=== PATIENT | male | born 1945 | race Caucasian/White ===

== ENCOUNTER 2016-05-11 12:10 | Emergency (ER) | payer OTHER, MEDICARE ==
[~2016-05-11] VITALS: Ht 185.4 cm; Wt 122.0 kg
[~2016-05-11 12:10] MED LIST: ASPIRIN EC325 MG PO; ATORVASTATIN CA80 MG PO; CALCIPOTRIENE60 GM TP; CALCIPOTRIENE60 ML TP; CLOPIDOGREL75 MG PO; DULOXETINE HCL60 MG PO; KEFLEX500 MG PO; LISINOPRIL20 MG PO; LOPRESSOR25 MG PO; MECLIZINE HCL25 MG PO; METFORMIN HCL1000 MG PO; NAPROXEN500 MG PO; OXYCODONE HCL5 MG PO; PRAVASTATIN SOD40 MG PO; VENTOLIN HFA18 GM IH; ZOFRAN ODT4 MG PO
[2016-05-11 13:01] LABS: EOSINOPHIL (%) 0.2 % (0-5); HEMATOCRIT 41.6 % (38.0-50.0); IMMATURE GRANULOCYTE (%) 0.2 % (0.0-0.7); IMMATURE GRANULOCYTE COUNT 0.4 K/uL; LYMPHOCYTE COUNT 3.7 K/uL (1.0-2.8); MCH 31.2 PG (29.0-34.0); MCHC 32.9 G/DL (30.0-36.0); MCV 94.8 FL (86-99); MEAN PLAT.VOLUME 10.6 uM^3 (9.0-12.4); MONOCYTE (%) 5.4 % (3-12); MONOCYTE COUNT 0.9 K/uL (0-0.8); NEUTROPHIL (%) 72.5 % (45-76); NEUTROPHIL COUNT 12.5 K/uL (1.8-6.4); PLATELET COUNT 201 K/uL (156-360); RBC DIS.WIDTH-SD 46.2 % (39-53); RED BLOOD COUNT 4.39 M/uL (4.00-5.50); WHITE BLOOD COUNT 17.2 K/uL (4.1-10.2)
[2016-05-11 13:12] LABS: CHLORIDE 104 mEq/L (99-109); POTASSIUM 4.2 mEq/L (3.7-5.4); SODIUM 143 mEq/L (136-147)
[2016-05-11 13:13] LABS: GLUCOSE 140 mg/dL (70-99)
[2016-05-11 13:15] LABS: ANION GAP 9 MEQ/L (2-14)
[2016-05-11 13:17] LABS: GFR ESTIMATE (CALCULATED) > 59 mL/min/
[2016-05-11 13:18] LABS: UREA NITROGEN (BUN) 24 mg/dL (9-23)
[2016-05-11 15:49] VITALS: BP 145/66
== END 2016-05-11 15:51 | disposition home or self-care (01) ==
LOC: EME 12:10
PROVIDERS: Emergency Medicine
DX: J40 Bronchitis, not specified as acute or chronic (principal); E11.9 Type 2 diabetes mellitus without complications; E78.5 Hyperlipidemia, unspecified; I10 Essential (primary) hypertension; I25.2 Old myocardial infarction; Z95.1 Presence of aortocoronary bypass graft; Z87.891 Personal history of nicotine dependence
CPT/HCPCS: 71020; 80048; 85025; 94640; 99281; 99284

== ENCOUNTER 2017-09-08 14:15 | Inpatient (IN) | payer OTHER, MEDICARE ==
[~2017-09-08] VITALS: Ht 185.4 cm; Wt 122.0 kg
[~2017-09-08 14:15] MED LIST changes: +ANORO ELLIPTA1 EACH IH; -METFORMIN HCL1000 MG PO; +METFORMIN HCL500 MG PO; -VENTOLIN HFA18 GM IH
[2017-09-08 15:44] LABS: HEMOGLOBIN 13.7 G/DL (12.5-16.6); MCH 30.2 PG (29.0-34.0); MCHC 32.6 G/DL (30.0-36.0); MCV 92.7 FL (86-99); PLATELET COUNT 235 K/uL (156-360); RBC DIS.WIDTH-CV 14.5 % (11.8-14.6); RBC DIS.WIDTH-SD 49.4 % (39-53); RED BLOOD COUNT 4.53 M/uL (4.00-5.50); WHITE BLOOD COUNT 9.2 K/uL (4.1-10.2)
[2017-09-08 15:55] LABS: CHLORIDE 105 mEq/L (99-109); POTASSIUM 4.6 mEq/L (3.7-5.4); SODIUM 141 mEq/L (136-147)
[2017-09-08 15:57] LABS: GLUCOSE 90 mg/dL (70-99); TOTAL PROTEIN 7.7 g/dL (6.4-8.3)
[2017-09-08 15:59] LABS: TOTAL BILIRUBIN 0.9 mg/dL (0.0-1.0)
[2017-09-08 16:00] LABS: ALKALINE PHOSPHATASE 110 IU/L (3-129)
[2017-09-08 16:01] LABS: GFR ESTIMATE (CALCULATED) > 59 mL/min/ (58.99-99999)
[2017-09-08 16:02] LABS: AST (GOT) 44 IU/L (2-34); UREA NITROGEN (BUN) 12 mg/dL (9-23)
[2017-09-08 16:04] LABS: ALT (GPT) 43 IU/L (3-49)
[2017-09-08] MEDS ORDERED: LO-DOSE ASPIRIN81 M1 PO (17:21)
[2017-09-08] MEDS ORDERED: CYMBALTA30 MG PO (17:22)
[2017-09-08] MEDS ORDERED: LIPITOR80 MG PO (17:24)
[2017-09-08] MEDS ORDERED: LOPRESSOR25 MG PO (17:25)
[2017-09-08] MEDS ORDERED: AMARYL1 MG PO (17:26)
[2017-09-08] MEDS ORDERED: KLONOPIN1 MG PO (17:26)
[2017-09-08] MEDS ORDERED: NORVASC5 MG PO (17:27)
[2017-09-08] MEDS ORDERED: TYLENOL REGULA325 MG PO (17:28)
[2017-09-08] MEDS ORDERED: MEN'S MULTI-VI1 EACH PO (17:28)
[2017-09-08 20:35] VITALS: BP 157/70
[2017-09-08 23:37] VITALS: BP 128/68
[2017-09-09 03:12] VITALS: BP 160/81
[2017-09-09 07:20] LABS: HEMATOCRIT 41.3 % (38.0-50.0); HEMOGLOBIN 13.4 G/DL (12.5-16.6); MCH 29.9 PG (29.0-34.0); MCHC 32.4 G/DL (30.0-36.0); MCV 92.2 FL (86-99); PLATELET COUNT 198 K/uL (156-360); RBC DIS.WIDTH-CV 14.6 % (11.8-14.6); RBC DIS.WIDTH-SD 49.3 % (39-53); RED BLOOD COUNT 4.48 M/uL (4.00-5.50); WHITE BLOOD COUNT 8.7 K/uL (4.1-10.2)
[2017-09-09 07:39] LABS: CHLORIDE 104 MEQ/L (99-109); CREATININE 0.8 MG/DL (0.6-1.3); GFR ESTIMATE (CALCULATED) > 59 mL/min/ (58.99-99999); GLUCOSE 99 mg/dL (70-99); POTASSIUM 4.5 MEQ/L (3.7-5.4); SODIUM 141 MEQ/L (136-147); UREA NITROGEN (BUN) 13 mg/dL (9-23)
[2017-09-09 09:26] VITALS: BP 138/76
[2017-09-09 11:48] VITALS: BP 127/63
[2017-09-09 18:21] VITALS: BP 114/58
[2017-09-09 19:25] VITALS: BP 122/59
[2017-09-09 23:17] VITALS: BP 130/60
[2017-09-10 03:00] VITALS: BP 145/65
[2017-09-10 08:18] VITALS: BP 134/64
[2017-09-10 12:27] VITALS: BP 123/58
[2017-09-10 15:22] VITALS: BP 130/61
[2017-09-10 19:46] VITALS: BP 145/66
[2017-09-11 00:29] VITALS: BP 113/56
[2017-09-11 04:00] VITALS: BP 162/75
[2017-09-11 08:05] VITALS: BP 159/77
[2017-09-11] MEDS ORDERED: BACTRIM,SEPT1 TABLET PO (09:59)
== END 2017-09-11 13:01 | disposition home or self-care (01) | DRG 561 ==
LOC: EME 14:15 → EXP 14:15 → EDOF 17:21 → ENRESERV 17:39 → 3EAST 20:19
PROVIDERS: Family Medicine; Nurse Practitioner Family
DX: T84.196A Other mechanical complication of internal fixation device of bone of right lower leg, initial encounter (principal); Y83.1 Surgical operation with implant of artificial internal device as the cause of abnormal reaction of the patient, or of later complication, without mention of misadventure at the time of the procedure; I25.10 Atherosclerotic heart disease of native coronary artery without angina pectoris; E78.5 Hyperlipidemia, unspecified; I10 Essential (primary) hypertension; E11.40 Type 2 diabetes mellitus with diabetic neuropathy, unspecified; E03.9 Hypothyroidism, unspecified; N40.0 Benign prostatic hyperplasia without lower urinary tract symptoms; M19.90 Unspecified osteoarthritis, unspecified site; F32.9 Major depressive disorder, single episode, unspecified; F41.9 Anxiety disorder, unspecified; I25.2 Old myocardial infarction; Z87.891 Personal history of nicotine dependence; Z95.1 Presence of aortocoronary bypass graft; Z95.5 Presence of coronary angioplasty implant and graft; Z79.82 Long term (current) use of aspirin; Z79.84 Long term (current) use of oral hypoglycemic drugs
CPT/HCPCS: 73610; 80048; 80053; 80202; 82565; 82948; 83605; 85027; 87040; 87070; 87075; 87205; 99281; 99284; J3370

== ENCOUNTER 2017-10-19 12:45 | Inpatient (IN) | payer OTHER, MEDICARE ==
[~2017-10-19] VITALS: Ht 185.4 cm; Wt 114.5 kg
[~2017-10-19 12:45] MED LIST changes: +AMARYL1 MG PO; +BACTRIM,SEPT1 TABLET PO; +CYMBALTA30 MG PO; +KLONOPIN1 MG PO; +LIPITOR80 MG PO; +LO-DOSE ASPIRIN81 M1 PO; +MEN'S MULTI-VI1 EACH PO; +NORVASC10 MG PO; +TYLENOL REGULA325 MG PO
[2017-10-19 13:59] LABS: BASOPHIL (%) 0.3 % (0-1); EOSINOPHIL (%) 1.7 % (0-5); EOSINOPHIL COUNT 0.2 K/uL (0-0.3); HEMATOCRIT 44.7 % (38.0-50.0); HEMOGLOBIN 14.5 G/DL (12.5-16.6); IMMATURE GRANULOCYTE (%) 0.3 % (0.0-0.7); LYMPHOCYTE (%) 16.8 % (15-42); LYMPHOCYTE COUNT 1.9 K/uL (1.0-2.8); MCHC 32.4 G/DL (30.0-36.0); MCV 92.5 FL (86-99); MONOCYTE COUNT 0.6 K/uL (0-0.8); NEUTROPHIL (%) 75.9 % (45-76); NEUTROPHIL COUNT 8.7 K/uL (1.8-6.4); PLATELET COUNT 224 K/uL (156-360); RBC DIS.WIDTH-CV 14.7 % (11.8-14.6); RBC DIS.WIDTH-SD 50.4 % (39-53); RED BLOOD COUNT 4.83 M/uL (4.00-5.50); WHITE BLOOD COUNT 11.5 K/uL (4.1-10.2)
[2017-10-19 14:08] LABS: INTER. NORMALIZED RATIO 1.2
[2017-10-19 14:10] LABS: PTT 27.3 SEC (25-37)
[2017-10-19 14:12] LABS: ALBUMIN 3.7 g/dL (3.2-4.8); CHLORIDE 103 mEq/L (99-109); POTASSIUM 5.1 mEq/L (3.7-5.4); SODIUM 142 mEq/L (136-147)
[2017-10-19 14:13] LABS: MAGNESIUM 1.7 mg/dL (1.3-2.7)
[2017-10-19 14:14] LABS: GLUCOSE 178 mg/dL (70-99)
[2017-10-19 14:16] LABS: TOTAL BILIRUBIN 1.1 mg/dL (0.0-1.0)
[2017-10-19 14:18] LABS: ALKALINE PHOSPHATASE 103 IU/L (3-129); CREATININE 1.4 mg/dL (0.6-1.3); GFR ESTIMATE (CALCULATED) 53 mL/min/ (58.99-99999)
[2017-10-19 14:19] LABS: UREA NITROGEN (BUN) 19 mg/dL (9-23)
[2017-10-19 14:20] LABS: AST (GOT) 55 IU/L (2-34)
[2017-10-19 14:21] LABS: ALT (GPT) 55 IU/L (3-49)
[2017-10-19 14:24] LABS: TROP-I INTERPRETATION NEGATIVE; TROPONIN-I 0.04 ng/mL (0.0-0.30)
[2017-10-19] MEDS ORDERED: AMOX TR-K CLV1 EAC3 PO (16:33)
[2017-10-19] MEDS ORDERED: CLONAZEPAM1 MG PO (16:34)
[2017-10-19] MEDS ORDERED: METOPROLOL TART25 MG PO (16:36)
[2017-10-19] MEDS ORDERED: ATORVASTATIN CA80 MG PO (16:36)
[2017-10-19] MEDS ORDERED: DULOXETINE HCL30 MG PO (16:39)
[2017-10-19] MEDS ORDERED: GLIMEPIRIDE1 MG PO (16:40)
[2017-10-19 17:36] LABS: TROP-I INTERPRETATION NEGATIVE; TROPONIN-I 0.04 ng/mL (0.0-0.30)
[2017-10-19 17:49] VITALS: BP 134/74
[2017-10-19 18:58] VITALS: BP 126/58
[2017-10-19 21:18] VITALS: BP 146/88
[2017-10-19 23:54] VITALS: BP 105/50
[2017-10-20 04:58] VITALS: BP 102/55
[2017-10-20 05:26] LABS: HEMOGLOBIN 13.9 G/DL (12.5-16.6); MCH 29.8 PG (29.0-34.0); MCHC 32.3 G/DL (30.0-36.0); MCV 92.1 FL (86-99); PLATELET COUNT 217 K/uL (156-360); RBC DIS.WIDTH-SD 50.1 % (39-53); RED BLOOD COUNT 4.67 M/uL (4.00-5.50); WHITE BLOOD COUNT 14.7 K/uL (4.1-10.2)
[2017-10-20 05:40] LABS: TROP-I INTERPRETATION NEGATIVE; TROPONIN-I 0.06 ng/mL (0.0-0.30)
[2017-10-20 05:45] LABS: CHLORIDE 99 MEQ/L (99-109); CREATININE 1.4 MG/DL (0.6-1.3); GFR ESTIMATE (CALCULATED) 53 mL/min/ (58.99-99999); SODIUM 138 MEQ/L (136-147); UREA NITROGEN (BUN) 27 mg/dL (9-23)
[2017-10-20 05:48] LABS: GLUCOSE 89 mg/dL (70-99); POTASSIUM 3.8 MEQ/L (3.7-5.4)
[2017-10-20 08:14] VITALS: BP 112/60
[2017-10-20] MEDS ORDERED: LOPRESSOR50 MG PO (12:17)
[2017-10-20] MEDS ORDERED: ASPIR-LOW81 MG PO (12:17)
[2017-10-20] MEDS ORDERED: AMLODIPINE BES2.5 MG PO (12:17)
[2017-10-20 15:31] LABS: TROP-I INTERPRETATION NEGATIVE; TROPONIN-I 0.05 ng/mL (0.0-0.30)
== END 2017-10-20 17:06 | disposition home or self-care (01) | DRG 309 ==
LOC: EME 12:45 → EDOF 14:30 → 4EAST 14:30 → CANRESERV 14:55 → ENRESERV 14:55 → 4EAST 17:12 → ENPENDDIS 10-20 → 4EAST 10-20 17:06
PROVIDERS: Emergency Medicine; Family Medicine
DX: I48.92 Unspecified atrial flutter (principal); I25.10 Atherosclerotic heart disease of native coronary artery without angina pectoris; R42 Dizziness and giddiness; I95.9 Hypotension, unspecified; N41.0 Acute prostatitis; E11.9 Type 2 diabetes mellitus without complications; I10 Essential (primary) hypertension; J44.9 Chronic obstructive pulmonary disease, unspecified; R09.02 Hypoxemia; E78.5 Hyperlipidemia, unspecified; E66.9 Obesity, unspecified; Z68.33 Body mass index [BMI] 33.0-33.9, adult; M19.90 Unspecified osteoarthritis, unspecified site; F32.9 Major depressive disorder, single episode, unspecified; F41.9 Anxiety disorder, unspecified; I25.2 Old myocardial infarction; Z95.1 Presence of aortocoronary bypass graft; Z95.5 Presence of coronary angioplasty implant and graft; Z79.2 Long term (current) use of antibiotics; Z79.84 Long term (current) use of oral hypoglycemic drugs; Z79.82 Long term (current) use of aspirin; Z87.891 Personal history of nicotine dependence
CPT/HCPCS: 71045; 80048; 80053; 83605; 83735; 84484; 85025; 85027; 85610; 85730; 93005; 99281; 99285

== ENCOUNTER 2017-11-08 12:24 | Emergency (ER) | payer OTHER, MEDICARE ==
[~2017-11-08] VITALS: Ht 185.4 cm; Wt 119.8 kg
[~2017-11-08 12:24] MED LIST changes: +AMLODIPINE BES2.5 MG PO; +AMOX TR-K CLV1 EAC3 PO; +ASPIR-LOW81 MG PO; +CLONAZEPAM1 MG PO; +DULOXETINE HCL30 MG PO; +GLIMEPIRIDE1 MG PO; +LOPRESSOR50 MG PO; +METOPROLOL TART25 MG PO
[2017-11-08 12:50] LABS: HEMATOCRIT 41.9 % (38.0-50.0); HEMOGLOBIN 13.6 G/DL (12.5-16.6); MCH 29.9 PG (29.0-34.0); MCHC 32.5 G/DL (30.0-36.0); MCV 92.1 FL (86-99); PLATELET COUNT 268 K/uL (156-360); RBC DIS.WIDTH-CV 15.1 % (11.8-14.6); RBC DIS.WIDTH-SD 51.3 % (39-53); RED BLOOD COUNT 4.55 M/uL (4.00-5.50); WHITE BLOOD COUNT 13.4 K/uL (4.1-10.2)
[2017-11-08 12:56] LABS: INTER. NORMALIZED RATIO 1.6
[2017-11-08 12:58] LABS: PTT 34.3 SEC (25-37)
[2017-11-08 13:10] LABS: TROP-I INTERPRETATION NEGATIVE; TROPONIN-I 0.04 ng/mL (0.0-0.30)
[2017-11-08 13:11] LABS: CHLORIDE 104 MEQ/L (99-109); SODIUM 141 MEQ/L (136-147)
[2017-11-08 13:16] LABS: GFR ESTIMATE (CALCULATED) > 59 mL/min/ (58.99-99999); GLUCOSE 95 mg/dL (70-99); UREA NITROGEN (BUN) 24 mg/dL (9-23)
[2017-11-08] MEDS ORDERED: CARDIZEM CD180 MG PO (14:43)
[2017-11-08 15:12] LABS: APPEARANCE CLEAR ((CLEAR)); BILIRUBIN NEGATIVE; BLOOD NEGATIVE; COLOR YELLOW ((YELLOW)); GLUCOSE (STRIP) NEGATIVE; KETONES NEGATIVE; LEUKOCYTES NEGATIVE; NITRITE NEGATIVE; PROTEIN (STRIP) 30; SPECIFIC GRAVITY 1.025 (1.000-1.030); UCUL ADDED? NO
[2017-11-08 15:20] VITALS: BP 113/87
== END 2017-11-08 15:20 | disposition home or self-care (01) ==
LOC: EME 12:24
PROVIDERS: Emergency Medicine
DX: I48.91 Unspecified atrial fibrillation (principal); I45.4 Nonspecific intraventricular block; R94.31 Abnormal electrocardiogram [ECG] [EKG]; I51.7 Cardiomegaly; J90 Pleural effusion, not elsewhere classified; J98.11 Atelectasis; I10 Essential (primary) hypertension; E11.9 Type 2 diabetes mellitus without complications; J44.9 Chronic obstructive pulmonary disease, unspecified; I25.2 Old myocardial infarction; F32.9 Major depressive disorder, single episode, unspecified; F41.9 Anxiety disorder, unspecified; Z79.84 Long term (current) use of oral hypoglycemic drugs; Z87.891 Personal history of nicotine dependence; Z95.1 Presence of aortocoronary bypass graft; Z95.9 Presence of cardiac and vascular implant and graft, unspecified; Z87.448 Personal history of other diseases of urinary system; Z87.442 Personal history of urinary calculi; Z98.890 Other specified postprocedural states; Z85.9 Personal history of malignant neoplasm, unspecified
CPT/HCPCS: 71045; 80048; 81003; 84484; 85027; 85610; 85730; 93005; 99281; 99285

== ENCOUNTER 2017-11-23 11:08 | Emergency (ER) | payer OTHER, MEDICARE ==
[~2017-11-23] VITALS: Ht 185.4 cm; Wt 120.0 kg
[~2017-11-23 11:08] MED LIST changes: +CARDIZEM CD180 MG PO
[2017-11-23 12:50] VITALS: BP 111/71
[2017-11-23] MEDS ORDERED: METOPROLOL SUCC50 MG PO (12:53)
[2017-11-23] MEDS ORDERED: ELIQUIS5 MG PO (12:53)
[2017-11-23] MEDS ORDERED: DULOXETINE HCL30 MG PO (12:55)
== END 2017-11-23 13:02 | disposition home or self-care (01) ==
LOC: EME 11:08
DX: F41.9 Anxiety disorder, unspecified (principal); E11.9 Type 2 diabetes mellitus without complications; Z79.84 Long term (current) use of oral hypoglycemic drugs; I10 Essential (primary) hypertension; J43.9 Emphysema, unspecified; I25.2 Old myocardial infarction; F32.9 Major depressive disorder, single episode, unspecified; Z87.442 Personal history of urinary calculi; Z95.1 Presence of aortocoronary bypass graft; Z87.891 Personal history of nicotine dependence
CPT/HCPCS: 82948; 99281; 99283

== ENCOUNTER 2017-11-29 11:34 | Observation (INO) | payer OTHER, MEDICARE ==
[~2017-11-29] VITALS: Ht 185.4 cm; Wt 124.0 kg
[~2017-11-29 11:34] MED LIST changes: +ELIQUIS5 MG PO; +METOPROLOL SUCC50 MG PO
[2017-11-29 12:16] LABS: HEMATOCRIT 41.3 % (38.0-50.0); HEMOGLOBIN 13.1 G/DL (12.5-16.6); MCH 29.4 PG (29.0-34.0); MCHC 31.7 G/DL (30.0-36.0); MCV 92.8 FL (86-99); PLATELET COUNT 211 K/uL (156-360); RBC DIS.WIDTH-CV 14.7 % (11.8-14.6); RBC DIS.WIDTH-SD 50.1 % (39-53); RED BLOOD COUNT 4.45 M/uL (4.00-5.50); WHITE BLOOD COUNT 9.1 K/uL (4.1-10.2)
[2017-11-29 12:30] LABS: CHLORIDE 103 mEq/L (99-109); POTASSIUM 4.2 mEq/L (3.7-5.4); SODIUM 141 mEq/L (136-147)
[2017-11-29 12:32] LABS: GLUCOSE 131 mg/dL (70-99)
[2017-11-29 12:36] LABS: CREATININE 0.9 mg/dL (0.6-1.3); GFR ESTIMATE (CALCULATED) > 59 mL/min/ (58.99-99999)
[2017-11-29 12:37] LABS: UREA NITROGEN (BUN) 14 mg/dL (9-23)
[2017-11-29 16:41] LABS: TROP-I INTERPRETATION NEGATIVE; TROPONIN-I 0.02 ng/mL (0.0-0.30)
[2017-11-29] MEDS ORDERED: DULOXETINE HCL60 MG PO (16:56)
[2017-11-29] MEDS ORDERED: LO-DOSE ASPIRIN81 M2 PO (17:10)
[2017-11-29] MEDS ORDERED: BRINTELLIX10 MG PO (17:12)
[2017-11-29] MEDS ORDERED: ASMANEX HFA13 GM IH (17:13)
[2017-11-29] MEDS ORDERED: SPIRIVA18 MCG IH (17:15)
[2017-11-29 17:57] VITALS: BP 150/78
[2017-11-29 19:01] LABS: HEMATOCRIT 42.5 % (38.0-50.0); HEMOGLOBIN 13.3 G/DL (12.5-16.6); MCV 93.2 FL (86-99)
[2017-11-29 20:21] VITALS: BP 131/86
[2017-11-30 00:47] VITALS: BP 139/84
[2017-11-30 04:46] VITALS: BP 142/80
[2017-11-30 05:59] LABS: BASOPHIL (%) 0.3 % (0-1); EOSINOPHIL (%) 2.9 % (0-5); EOSINOPHIL COUNT 0.3 K/uL (0-0.3); HEMATOCRIT 40.4 % (38.0-50.0); HEMOGLOBIN 12.7 G/DL (12.5-16.6); IMMATURE GRANULOCYTE (%) 0.2 % (0.0-0.7); LYMPHOCYTE (%) 25.4 % (15-42); LYMPHOCYTE COUNT 2.4 K/uL (1.0-2.8); MCH 29.1 PG (29.0-34.0); MCHC 31.4 G/DL (30.0-36.0); MCV 92.7 FL (86-99); MONOCYTE (%) 6.5 % (3-12); MONOCYTE COUNT 0.6 K/uL (0-0.8); NEUTROPHIL (%) 64.7 % (45-76); PLATELET COUNT 193 K/uL (156-360); RBC DIS.WIDTH-CV 14.7 % (11.8-14.6); RBC DIS.WIDTH-SD 50.3 % (39-53); RED BLOOD COUNT 4.36 M/uL (4.00-5.50); WHITE BLOOD COUNT 9.2 K/uL (4.1-10.2)
[2017-11-30 06:16] LABS: ALBUMIN 3.6 G/DL (3.2-4.8); ALKALINE PHOSPHATASE 101 IU/L (3-129); ALT (GPT) 29 IU/L (3-49); AST (GOT) 28 IU/L (2-34); CHLORIDE 99 MEQ/L (99-109); CREATININE 0.9 MG/DL (0.6-1.3); GFR ESTIMATE (CALCULATED) > 59 mL/min/ (58.99-99999); GLUCOSE 114 mg/dL (70-99); POTASSIUM 4.5 MEQ/L (3.7-5.4); SODIUM 140 MEQ/L (136-147); TOTAL BILIRUBIN 1.1 MG/DL (0.0-1.0); TOTAL PROTEIN 6.1 G/DL (6.4-8.3); UREA NITROGEN (BUN) 13 mg/dL (9-23)
[2017-11-30 08:19] VITALS: BP 156/90
[2017-11-30 12:26] LABS: HEMOGLOBIN A1c (GLYCOHEMOGLOB) 6.5 % (Below 5.7)
[2017-11-30] MEDS ORDERED: CARDIZEM CD,CA240 MG PO (13:59)
[2017-11-30 15:51] LABS: STOOL OCCULT BLD 1ST SPECIMEN NEGATIVE
== END 2017-11-30 15:01 | disposition home or self-care (01) ==
LOC: EME 11:34 → EDOF 16:24 → 4SOUTH 16:24 → ENRESERV 16:28 → 4SOUTH 17:34
PROVIDERS: Hospitalist; Physician Assistant
DX: K62.5 Hemorrhage of anus and rectum (principal); I48.0 Paroxysmal atrial fibrillation; Z79.01 Long term (current) use of anticoagulants; Z79.82 Long term (current) use of aspirin; K59.00 Constipation, unspecified; R93.8 Abnormal findings on diagnostic imaging of other specified body structures; F41.9 Anxiety disorder, unspecified; F32.9 Major depressive disorder, single episode, unspecified; Z87.891 Personal history of nicotine dependence; I25.10 Atherosclerotic heart disease of native coronary artery without angina pectoris; E78.5 Hyperlipidemia, unspecified; I10 Essential (primary) hypertension; E11.9 Type 2 diabetes mellitus without complications; Z95.1 Presence of aortocoronary bypass graft; Z95.5 Presence of coronary angioplasty implant and graft; Z79.84 Long term (current) use of oral hypoglycemic drugs; Z88.2 Allergy status to sulfonamides
CPT/HCPCS: 74177; 80048; 80053; 82272; 82948; 83036; 84484; 85014; 85018; 85025; 85027; 86850; 86900; 86901; 93005; 94640; 94799; 99281; 99285; G0378; J7040